=== PATIENT | male | born 1930 | race Caucasian/White ===

== ENCOUNTER 2020-02-15 12:28 | Emergency (ER) | payer MEDICARE, OTHER ==
--- NOTE | 2020-02-15 13:14 | EDM.PDOC ---
<Elvira Sims M - Last Filed: 02/15/20 13:09> ED HPI GENERAL MEDICAL PROBLEM - General Chief Complaint: Neck Problem Stated Complaint: Fell while backing out of a bathroom stall at [place] Time Seen by Provider: 02/15/20 13:11 Source of Information: Reports: Patient, RN, RN Notes Reviewed, Significant Other History Limitations: Reports: Physical Impairment (BLLE weakness chronic ) - History of Present Illness INITIAL COMMENTS - FREE TEXT/NARRATIVE: Pt here with spouse with worsening c/o pain to neck. Pt fell coming form a public bathroom at [facility] yesterday. Fell into brick wall. Denies LOC, SOB, syncope, fever, chills, or CP. Pt indicates has been doing exercise each day that he received from PT in an attempt to strengthen BL legs. Pt has a R black eye, ecchymosis to R cheek, BL temporal forehead with hematomas. R>L. Pt is on Plavix. Onset Date: 02/14/20 Duration: Day(s):, Getting Worse Location: Reports: Head, Face, Neck, Back Quality: Reports: Ache Severity: Mild - Related Data Allergies Allergy/AdvReac Type Severity Reaction Status Date / Time blue dye Allergy Rash Verified 02/15/20 12:48 morphine Allergy Anaphylactic Verified 02/15/20 12:48 Shock Home Meds: Home Meds Alendronate Sodium [Fosamax] 70 mg PO ASDIRECTED 02/15/20 [History] Calcium Carbonate/Vitamin D3 [Calcium 500 + Vit D 400] 1 tab PO DAILY 02/15/20 [History] Clopidogrel [Plavix] 75 mg PO DAILY 02/15/20 [History] Doxycycline [Doxycycline Hyclate] 100 mg PO DAILY 02/15/20 [History] Finasteride 5 mg PO DAILY 02/15/20 [History] Furosemide [Lasix] 40 mg PO DAILY 02/15/20 [History] Isosorbide Mononitrate [Isosorbide Mononitrate ER] 30 mg PO DAILY 02/15/20 [History] Metoprolol Tartrate 25 mg PO DAILY 02/15/20 [History] Simvastatin [Zocor] 40 mg PO BEDTIME 02/15/20 [History] Past Medical History Cardiovascular History: Reports: Bypass, High Cholesterol, Hypertension, Pacemaker Neurological History: Reports: TIA - Past Surgical History Respiratory Surgical History: Reports: Other (See Below) Other Respiratory Surgeries/Procedures: uses a bipap Social & Family History - Tobacco Use Smoking Status *Q: Never Smoker ED ROS GENERAL - Review of Systems Review Of Systems: See Below Constitutional: Reports: Weakness (Chronic BLLE) HEENT: Reports: No Symptoms Respiratory: Reports: No Symptoms Cardiovascular: Reports: No Symptoms Endocrine: Reports: No Symptoms GI/Abdominal: Reports: No Symptoms : Reports: No Symptoms Musculoskeletal: Reports: Neck Pain, Back Pain (Neck and back from fall) Skin: Reports: Bruising, Erythema, Other (Pt has R black eye and larger hematoma on R temporal and smaller hematoma on L temporal ) Neurological: Reports: Weakness (Chronic ) Psychiatric: Reports: No Symptoms Hematologic/Lymphatic: Reports: No Symptoms Immunologic: Reports: No Symptoms ED EXAM, UPPER BACK/NECK PAIN - Physical Exam Exam: See Below Exam Limited By: No Limitations General Appearance: Alert, WD/WN, Mild Distress Eye Exam: Bilateral Eye: Normal Inspection, PERRL Head Exam: Scalp Abrasions, Scalp Ecchymosis, Scalp Hematoma, Facial Abrasions, Facial Ecchymosis, Facial Tenderness Neck Exam: Painful Range of Motion, Stiff Neck, Tenderness Nexus Criteria: Posterior, Midline Cervical Tenderness Cardiovascular/Respiratory: Regular Rate, Rhythm, Normal Breath Sounds, No Respiratory Distress (Male) Exam: Deferred Rectal (Males) Exam: Deferred Back Exam: Vertebral Tenderness Extremities: Normal Inspection, Pedal Edema, Limited Range of Motion (Chronic BLLE weakness) 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 As Tested, No Motor/Sensory Deficits, Alert, Normal Mood/Affect Departure - Departure Disposition: Home, Self-Care 01 Clinical Impression: Dens fracture Qualifiers: Encounter type: initial encounter Fracture type: closed Qualified Code(s): S12.100A - Unspecified displaced fracture of second cervical vertebra, initial encounter for closed fracture - Discharge Information Referrals: PCP,None [Primary Care Provider] - Forms: ED Department Discharge Additional Instructions: Continue to use the collar for pain control and comfort as well as stability of your fracture, please follow-up with neurosurgery upon return home Sepsis Event Note (ED) - Evaluation Sepsis Screening Result: No Definite Risk <Ad Roberts - Last Filed: 02/15/20 15:24> ED EXAM, UPPER BACK/NECK PAIN - Physical Exam Text/Narrative:: agree with below Course - Vital Signs Last Recorded V/S: Last Vital Signs Temp 97.8 F 02/15/20 12:53 Pulse 59 L 02/15/20 12:53 Resp 20 02/15/20 12:53 BP 145/72 H 02/15/20 12:53 Pulse Ox 98 02/15/20 12:53 - Orders/Labs/Meds Orders: Active Orders 24 hr Category Date Time Status DME for Discharge [COMM] Per Unit Routine Oth 02/15/20 14:49 Ordered Departure - Departure Time of Disposition: 15:23 Condition: Fair Sepsis Event Note (ED) - Focused Exam Vital Signs: Vital Signs Temp Pulse Resp BP Pulse Ox 02/15/20 12:53 97.8 F 59 L 20 145/72 H 98 - My Orders Last 24 Hours: My Active Orders 02/15/20 14:49 DME for Discharge [COMM] Per Unit Routine - Assessment/Plan Last 24 Hours: My Active Orders 02/15/20 14:49 DME for Discharge [COMM] Per Unit Routine Plan: Assessment Acuity = acute Site and laterality = displaced fracture dens base Etiology = secondary to trauma Manifestations = none Location of injury = Home Lab values = CT scan describes fracture above Plan Call discussed case with Dr. Torres neurosurgery [facility] at 1520 recommended a soft collar follow-up with neurosurgery upon return home Tylenol and Motrin as needed for pain control baseline,, hydrocodone 5/325 1 tab p.o. 3 times daily PRN total #10 provided for breakthrough pain Ad Silva MD was personally available for consultation in the ED. I have reviewed the chart and agree with the documentation as recorded by the ELECTRO MECHANICAL DESIGNER Student, including the assessment, treatment plan and disposition. Ad Silva MD personally saw and examined the patient. I have reviewed and agree with the ELECTRO MECHANICAL DESIGNER Student's findings. This note was dictated using [employer] voice recognition software please call with any questions on syntax or grammar.
--- NOTE | 2020-02-15 14:23 | CT ---
Head wo Cont, Max Facial Sinus wo Cont CLINICAL HISTORY: Fall, loss of consciousness COMPARISON: None TECHNIQUE: Transverse scans were obtained from the base of the skull through the vertex without IV contrast on a multislice, multidetector CT scanner. Auto dosage reduction and iterative reconstruction techniques employed. FINDINGS: No focal abnormal parenchymal densities are identified. There is no mass effect, hemorrhage, or extraaxial collection. There are scattered periventricular and subcortical lucencies. The basal cisterns and sulci over the convexities are prominent. The ventricles are mildly prominent. IMPRESSION: No acute intracranial process Atrophic changes Chronic ischemic microvascular changes Max Facial Sinus wo Cont : TECHNIQUE: Axial tomographic images were obtained from the upper calvarium through the upper neck, without contrast enhancement. Auto dosage reduction and iterative reconstruction techniques employed. CLINICAL HISTORY: Fall FINDINGS: The mandible appears intact. The anterior nasal spine is intact. There is some leftward deviation of the nasal septum. Nasal bones appear intact. Bony orbits appear intact. Orbital fat planes are well preserved. Zygomatic arches are intact. There is diffuse chronic sinusitis involving the maxillary ethmoid sinuses. IMPRESSION: No fracture seen Chronic maxillary and ethmoid sinusitis
--- NOTE | 2020-02-15 14:53 | CT ---
Cervical Spine wo Cont CLINICAL HISTORY: Fall TECHNIQUE: Multiple CT sections were taken through the cervical spine in the transaxial projection. Coronal and sagittal views were reconstructed. Images were viewed at bone as well as soft tissue windows on a digital workstation. Auto dosage reduction and iterative reconstruction techniques employed. FINDINGS: There is a fracture through the dens. There is a minimal retrolisthesis and posterior angulation. Predental space is less than 1 mm. The vertebral body heights are maintained throughout. There is anterolisthesis of C6 which is likely related to moderate facet disease which is seen diffusely. Pedicles appear intact. There are diffuse degenerative disc changes with accompanying spondylosis. There is also uncovertebral vertebral joint spurring. There is mild bilateral bony foraminal encroachment at C3-4. There is moderate encroachment greater on the left at C4-5. There is bilateral moderate bilateral neural foraminal encroachment at C5-6. There is moderate calcified plaque in the carotid bifurcation. IMPRESSION: Slightly displaced fracture of the base of the dens. There is no widening of the predental space. 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
== END 2020-02-15 15:59 | disposition home or self-care (01) ==
LOC: JP.ED 12:28
DX: S12.110A Anterior displaced Type II dens fracture, initial encounter for closed fracture (principal); E78.00 Pure hypercholesterolemia, unspecified; I10 Essential (primary) hypertension; Z86.73 Personal history of transient ischemic attack (TIA), and cerebral infarction without residual deficits; Z79.02 Long term (current) use of antithrombotics/antiplatelets; Z79.899 Other long term (current) drug therapy; W22.8XXA Striking against or struck by other objects, initial encounter; Z91.048 Other nonmedicinal substance allergy status; Z88.5 Allergy status to narcotic agent; Y92.830 Public park as the place of occurrence of the external cause
CPT/HCPCS: 70450; 70450-26; 70486; 70486-26; 72125; 72125-26; 99283; 99283-25